=== PATIENT | female | born 1995 | race Caucasian/White ===

== ENCOUNTER → 2024-03-06 | Outpatient (CLI) | payer OTHER ==
[2024-03-06 08:56] LABS: FASTING GLUCOSE 89 mg/dL (70-110)
[2024-03-06 09:29] LABS: 1/2 HR GLUCOSE 166 mg/dL (100-170)
[2024-03-06 09:37] LABS: 1 HR GLUCOSE 165 mg/dL (90-160)
== END ==
LOC: COL.LAB 07:22
PROVIDERS: Internal Medicine Nephrology
DX: E87.6 Hypokalemia (principal); R73.01 Impaired fasting glucose